=== PATIENT | female | born 1990 | race Caucasian/White ===

== ENCOUNTER 2024-04-13 20:29 | Outpatient (CLI) | payer OTHER ==
[2024-04-13 21:32] VITALS: BP 131/83; PULSE 86; RESP 16; TEMP 97.3
--- NOTE | 2024-05-10 11:03 | P.MSEPDOC ---
Presenting Problems - Arrival Data Date of Arrival on Unit: 04/13/24 Time of Arrival on Unit: 20:29 Mode of Transport: Ambulatory - Complaint OB-Reason for Admission/Chief Complaint: Decreased Movement Medical History - Information : 2 Para: 1 Term: 1 : 0 Abortions: Spontaneous or Elective: 0 Number of Living Children: 1 - Gestational Age Gestational Age by BORIS (wks/days): 37 Weeks and 3 Days - History Complications: Prior , Smoker Review of Systems - Review of Systems Constitutional: No problems Breast: No problems ENT: No problems Cardiovascular: No problems Respiratory: No problems Gastrointestinal: No problems Genitourinary: No problems Musculoskeletal: No problems Neurological: No problems Skin: No problems Vital Signs - Temperature Temperature: 97.3 F Temperature Source: Temporal Artery Scan - Pulse Right Brachial Pulse Rate: 86 Pulse Assessment Method: Automatic Cuff - Respirations Respiratory Rate: 16 Oxygen Delivery Method: Room Air - Blood Pressure Right Arm Blood Pressure: 131/83 Blood Pressure Mean: 99 Blood Pressure Source: Automatic Cuff Medical Screen Scoring - Cervical Exam Membranes: Intact - Uterine Contractions Resting: Soft to palpation - Assessment - Baby A Baseline FHR: 150 Heart Rate - NICHD Category: Category I (Normal) NST: Reactive Physician Notification - Physician Notified Physician Notified Date: 04/13/24 Physician Notified Time: 21:00 Physician: David Landers New Order Received: Yes - Notification Comment Comment: 2100- Dr. Sanchez on unit. report given on patient that presents to triage for decreased movement, reactive nst obtained. Patient reports vaginal pressure, cervical exam closed thick and high. patient to be discharged home. Maternal Triage Index - Stat/Priority 1 Stat Priority 1: No - Urgent/Priority 2 Urgent Priority 2: Yes Provider Notified: David Landers Provider Notified Time: 21:00 Criteria Met for Priority 2: decreased movement, reactive nst obtained Disposition - Disposition OB Disposition: Discharge to home Discharge Date: 04/13/24 Discharge Time: 21:08 I agree with the RN Medical Screening Exam: Yes Physician's MSE Comment: I have neither seen nor examined the patient. Case reviewed; plan agreed upon as documented in EMR&OBIX.: Yes Diagnosis: RELATED CONDITIONS, UNSPECIFIED, THIRD TRIMESTER
== END 2024-04-13 21:08 ==
LOC: FBPOP 20:29
PROVIDERS: ATTEND Obstetrics & Gynecology
DX: O26.93 Pregnancy related conditions, unspecified, third trimester (principal); O36.8130 Decreased fetal movements, third trimester, not applicable or unspecified; O99.333 Smoking (tobacco) complicating pregnancy, third trimester; F17.200 Nicotine dependence, unspecified, uncomplicated; Z3A.37 37 weeks gestation of pregnancy; Z88.1 Allergy status to other antibiotic agents; Z88.7 Allergy status to serum and vaccine; Z88.5 Allergy status to narcotic agent; Z88.8 Allergy status to other drugs, medicaments and biological substances
CPT/HCPCS: 59025; 99213

== ENCOUNTER 2024-04-26 08:15 | Inpatient (IN) | payer OTHER ==
[2024-04-26] MEDS ORDERED: OXYTOCIN 10 UNIT/ML 1 ML VIAL IM PRN (08:25)
[2024-04-26] MEDS ORDERED: CARBOPROST TROMETHAMINE 250 MCG/ML 1 ML AMP IM PRN (08:25)
[2024-04-26] MEDS ORDERED: METHYLERGONOVINE 0.2 MG/ML 1 ML AMP IM PRN (08:25)
[2024-04-26] MEDS ORDERED: miSOPROStoL 200 MCG TAB PO PRN (08:25)
[2024-04-26] MEDS ORDERED: TRANEXAMIC 1,000 MG/100ML-NACL 1,000 MG in EMPTY BAG 1 BAG IV PRN (08:25)
[2024-04-26] MEDS: LACTATED RINGERS 1,000 ML IV ONE (09:15)
[2024-04-26 09:43] LABS: Basophils % (A) 0 %; Eosinophils # (A) 0.1 k/uL (0-0.7); Eosinophils % (A) 1 %; HCT 37.6 % (34.0-46.0); HGB 11.8 gm/dL (11.4-16.0); Lymphocytes # (A) 1.5 k/uL (1.0-4.8); Lymphocytes % (A) 12 %; MCH 27.6 pg (25.0-35.0); MCHC 31.5 g/dL (31.0-37.0); MCV 87.7 fL (80.0-100.0); Mean Platelet Volume 10.9; Monocytes # (A) 0.6 k/uL (0-1.0); Monocytes % (A) 5 %; Neutrophils # (A) 9.9 k/uL (1.3-7.7); Neutrophils % (A) 81 %; Platelet Count 162 k/uL (150-450); RBC 4.29 m/uL (3.80-5.40); RDW 14.1 % (11.5-15.5); WBC 12.3 k/uL (3.8-10.6)
[2024-04-26] MEDS: LACTATED RINGERS 1,000 ML IV SCH ×2 (09:43→21:21)
[2024-04-26] MEDS: CITRIC ACID-SODIUM CITRATE 15 ML CUP PO ONE (09:43)
[2024-04-26] MEDS ORDERED: PHENYLEPHRINE-0.9% NACL SYG 1,000 MCG/10 ML SYRINGE ONE (09:52)
[2024-04-26] MEDS ORDERED: DEXAMETHASONE SOD PHOSPHATE 10 MG/ML 1 ML VIAL ONE (09:52)
[2024-04-26] MEDS ORDERED: NALBUPHINE (ANES) 10 MG/ML - 1 ML AMP ONE (09:52)
[2024-04-26] MEDS ORDERED: MORPHINE SULFATE (PF) 0.3 MG/0.3 ML SYR ONE (09:52)
[2024-04-26] MEDS ORDERED: ONDANSETRON 4 MG/2 ML VIAL ONE (09:52)
[2024-04-26] MEDS ORDERED: diphenhydrAMINE 50 MG CAP PO PRN (10:53)
[2024-04-26] MEDS ORDERED: ZOLPIDEM 5 MG TAB PO PRN (10:53)
[2024-04-26] MEDS ORDERED: diphenhydrAMINE 50 MG/ML 1 ML VIAL IVP PRN ×2 (10:53)
[2024-04-26] MEDS ORDERED: SIMETHICONE 80 MG CHEWABLE PO PRN (10:53)
[2024-04-26] MEDS ORDERED: ONDANSETRON 4 MG/2 ML VIAL IVP PRN (10:53)
[2024-04-26] MEDS ORDERED: diphenhydrAMINE 25 MG CAP PO PRN (10:53)
[2024-04-26] MEDS ORDERED: NALOXONE 0.4 MG/ML 1 ML VIAL IV PRN (10:53)
--- NOTE | 2024-04-26 11:09 | P.HPOB ---
History of Present Illness H&P Date: 04/26/24 Chief Complaint: IUP at 39-2/7 weeks, history of section x 1 desires repeat This is a 33-year-old 2 para 1-0-0-1 that presented to labor and delivery this morning for scheduled repeat section. EDC of 05/01 based on first trimester ultrasound. Patient has been receiving routine care which has been essentially uncomplicated. Ultrasound done on March 11 (32 weeks) for size greater than dates, estimated weight of 5 pounds 8 ounces at that time or 92nd percentile. This morning patient notes good movement she denies contractions vaginal bleeding or loss of fluid. On blood work this patient is a blood type of O-, rubella status immune, hepatitis B surface engine negative, HIV negative, RPR is nonreactive, grew beta strep culture is negative. Review of Systems Constitutional: Denies chills, Denies fatigue, Denies fever Ears, nose, mouth and throat: Denies headache Cardiovascular: Reports leg edema Respiratory: Denies dyspnea Gastrointestinal: Denies nausea, Denies vomiting Genitourinary: Reports Past Medical History Additional Past Medical History / Comment(s): Murmur as child. Hx dog bite 01/17/19, was on po AB Rx. c/o N/V on/off since 01/31/19, diarrhea x1, to EC x2. History of Any Multi-Drug Resistant Organisms: None Reported Past Surgical History: Section, Tonsillectomy Additional Past Surgical History / Comment(s): Oral surg. Past Anesthesia/Blood Transfusion Reactions: No Reported Reaction Past Psychological History: No Psychological Hx Reported Smoking Status: Current some day smoker, Light tobacco smoker Past Alcohol Use History: Occasional Additional Past Alcohol Use History / Comment(s): Smoking since age 18, except preganancy, 1/2-1 ppd est Past Drug Use History: None Reported - Past Family History Sister(s) Family Medical History: Deep Vein Thrombosis (DVT) Medications and Allergies Home Medications Medication Instructions Recorded Confirmed Type Aspirin [Children's Aspirin] 1 tab PO ONCE 03/04/24 04/26/24 History Vit No.179/Iron/Folic 1 tab PO ONCE 03/04/24 04/26/24 History [ Tablet] Allergies Allergy/AdvReac Type Severity Reaction Status Date / Time azithromycin [From Zithromax] Allergy Severe Anaphylaxis Verified 04/26/24 08:24 clarithromycin [From Biaxin] Allergy Severe Anaphylaxis Verified 04/26/24 08:24 erythromycin base Allergy Severe Anaphylaxis Verified 04/26/24 08:24 Tetanus Vaccines and Toxoid Allergy Intermediate Swelling Verified 04/26/24 08:24 [Tetanus Vaccines & Toxoid] acetaminophen [From [place]] AdvReac Confusion Verified 04/26/24 09:14 hydrocodone [From [place]] AdvReac Confusion Verified 04/26/24 09:14 prochlorperazine AdvReac dizzyness, Verified 04/26/24 08:24 [From Compazine] blurred vision Exam Osteopathic Statement: *. No significant issues noted on an osteopathic structural exam other than those noted in the History and Physical/Consult. Vital Signs Temp Pulse Resp BP Pulse Ox 04/26/24 08:22 97.8 F 83 17 139/63 97 Intake and Output 04/25/24 04/26/24 04/26/24 22:59 06:59 14:59 Other: Weight 117.934 kg Targeted physical exam is performed on this date In general this is a well- nourished well-developed female in no acute distress, breathing is nonlabored, heart has a regular rate and rhythm, abdomen is gravid, cervical exam is deferred, heart tones noted to be category 1 and she is not anna. Results Result Diagrams: 04/26/24 09:03 Abnormal Lab Results - Last 24 Hours (Table) 04/26/24 Range/Units 09:03 WBC 12.3 H (3.8-10.6) k/uL Neutrophils # 9.9 H (1.3-7.7) k/uL Assessment and Plan (1) Term Current Visit: Yes Status: Acute Code(s): Z34.90 - ENCNTR FOR SUPRVSN OF NORMAL , UNSP, UNSP TRIMESTER SNOMED Code(s): 00034206 (2) History of section Current Visit: Yes Status: Acute Code(s): Z98.891 - HISTORY OF UTERINE SCAR FROM PREVIOUS SURGERY SNOMED Code(s): 373767443 Plan: 33-year-old G2, P1 at 39-2/7 weeks that presents for repeat section. Informed consent is obtained the procedure was reviewed and questions were answered. Risks are discussed including but not limited to infection, bleeding, damage to bladder, bowel, injury. Patient states understanding. Will proceed to the OR for scheduled repeat section
--- NOTE | 2024-04-26 11:11 | P.OP ---
Date of Procedure: 04/26/24 Preoperative Diagnosis: IUP at 39-2/7 weeks, history of section x 1, desires repeat Postoperative Diagnosis: Same Procedure(s) Performed: Repeat section Anesthesia: spinal Surgeon: Tereza Perera Estimated Blood Loss (ml): 442 IV fluids (ml): 800 Urine output (ml): 150 Pathology: none sent Condition: stable Disposition: observation Indications for Procedure: History of section x 1, desires repeat Operative Findings: Viable female delivered at 1017, weight of 8 pounds 3 ounces, Apgars of 9 and 9 at 1 and 5 minutes respectively. Normal uterus tubes and ovaries are appreciated. Description of Procedure: The patient was prepped and draped in the usual fashion after spinal anesthesia was administered by department. A Pfannenstiel incision was made and extended of the abdominal cavity without difficulty. The bladder peritoneum was elevated and incised and reflected distally. A 2 cm incision was made in the transverse plane of the lower uterine segment to enter the uterus at which time clear fluid was noted. The incision was extended in both directions using the bandage scissors. The head was encountered within the field and delivered up and through the incision where the nose and mouth were thoroughly suctioned. Remainder of the infant was delivered onto the surgical field where the cord was doubly clamped, cut, and the was passed for resuscitative measures with weight and Apgars as noted above. The placenta was delivered manually, intact, and was grossly normal with a grossly normal three-vessel cord. The uterus was exteriorized and the interior cavity of the uterus swept of any remaining placental and membranous fragments with a laparotomy sponge. The margins of the incision were grasped with Allis clamps and the incision closed in 2 layers. First layer was a running locking layer of 0 Vicryl from margin to margin followed by a second layer of imbricating 0 Vicryl from margin to margin. Any small points of bleeding were then made hemostatic with the Bovie. Once hemostasis was achieved, the posterior cul-de-sac was suctioned with a guard and the uterine and ovarian findings are as noted above. The uterus was replaced within the abdominal cavity and the gutters swept of any remaining blood fluid or clot. The incision was again reexamined and hemostasis was noted to be excellent. Any small point of bleeding were made hemostatic with the Bovie. Once hemostasis was achieved the parietal peritoneum was loosely reapproximated. The layer of muscles were examined and made hemostatic with the Bovie. Attention was then turned to the fascia which was closed with 2 running stitches of 0 Vicryl proceeding from the lateral margins to the midpoint. The subcutaneous tissues were irrigated, made hemostatic with the Bovie, and reapproximated with a running stitch of 30 Vicryl. The skin was reapproximated with 4-0 Vicryl. Estimated blood loss for the case was approximately 442 mL. All sponge instrument and needle counts are correct. There were no complications. The patient tolerated the procedure well and proceeded to the recovery room in stable condition. Both mother and are resting comfortably in recovery.
[2024-04-26] MEDS: METOCLOPRAMIDE 5 MG/ML 2 ML VIAL IVP PRN (13:19)
[2024-04-26] MEDS: ACETAMINOPHEN TAB 500 MG TAB PO SCH (14:56)
[2024-04-26] MEDS: IBUPROFEN 800 MG TAB PO SCH (19:41)
[2024-04-26] MEDS: SENNOSIDES-DOCUSATE SODIUM 1 EACH TAB PO SCH (19:41)
[2024-04-26] MEDS: PRENATAL VIT-IRON-FOLIC ACID 1 EACH TABLET PO ONE (21:21)
[2024-04-27 07:11] LABS: Basophils % (A) 0 %; Eosinophils # (A) 0.1 k/uL (0-0.7); Eosinophils % (A) 1 %; HGB 10.3 gm/dL (11.4-16.0); Lymphocytes # (A) 1.8 k/uL (1.0-4.8); Lymphocytes % (A) 13 %; MCV 87.6 fL (80.0-100.0); Mean Platelet Volume 11.3; Monocytes # (A) 0.7 k/uL (0-1.0); Monocytes % (A) 5 %; Neutrophils # (A) 11.6 k/uL (1.3-7.7); Neutrophils % (A) 80 %; Platelet Count 146 k/uL (150-450); RBC 3.66 m/uL (3.80-5.40); RDW 14.4 % (11.5-15.5); WBC 14.5 k/uL (3.8-10.6)
--- NOTE | 2024-04-27 09:54 | P.PNOBGPC ---
Subjective - Subjective Principal diagnosis: Postop day 1, repeat section Interval history: Patient is doing well postoperatively. She is ambulating and voiding without difficulty. She is tolerating a regular diet without nausea or vomiting. Her pain is well-controlled. She is breast-feeding with some difficulty. He is noted to be minimal. Patient reports: Reports appetite normal, Reports voiding normally, Reports pain well controlled, Reports ambulating normally : doing well Objective - Vital Signs Latest vital signs: Vital Signs Temp Pulse Resp BP Pulse Ox 04/27/24 08:00 98.2 F 78 16 105/71 04/27/24 00:00 98 F 75 18 120/72 98 04/26/24 20:00 98 F 63 18 107/70 98 04/26/24 16:00 97.2 F L 75 22 105/62 98 04/26/24 12:50 74 17 98/52 100 04/26/24 12:35 71 18 96/51 100 04/26/24 12:20 68 17 95/54 100 04/26/24 12:05 67 17 97/54 97 04/26/24 11:50 67 18 102/55 99 04/26/24 11:35 70 17 105/51 98 04/26/24 11:20 69 17 106/53 97 04/26/24 11:05 75 17 108/55 97 04/26/24 10:50 97.2 F L 77 17 105/56 98 Intake and Output 04/26/24 04/27/24 04/27/24 22:59 06:59 14:59 Intake Total 60 Output Total 300 Balance -240 Intake: Oral 60 Output: Urine 300 Uretheral ([place]) 300 Other: # Voids 2 1 - Exam Extremities: Present: normal, edema Abdomen: Present: normal appearance, soft Incision: Present: normal, dry, intact Uterus: Present: normal, firm - Labs Labs: Abnormal Lab Results - Last 24 Hours (Table) 04/27/24 Range/Units 06:38 WBC 14.5 H (3.8-10.6) k/uL RBC 3.66 L (3.80-5.40) m/uL Hgb 10.3 L (11.4-16.0) gm/dL Hct 32.0 L (34.0-46.0) % Plt Count 146 L (150-450) k/uL Neutrophils # 11.6 H (1.3-7.7) k/uL Assessment and Plan (1) Term Current Visit: Yes Status: Acute Code(s): Z34.90 - ENCNTR FOR SUPRVSN OF NORMAL , UNSP, UNSP TRIMESTER SNOMED Code(s): 58808909 (2) History of section Current Visit: Yes Status: Acute Code(s): Z98.891 - HISTORY OF UTERINE SCAR FROM PREVIOUS SURGERY SNOMED Code(s): 305070365 (3) Status post section Current Visit: Yes Status: Acute Code(s): Z98.891 - HISTORY OF UTERINE SCAR FROM PREVIOUS SURGERY SNOMED Code(s): 101043974 Plan: Patient is doing well postoperatively. Plan to continue routine postoperative care and anticipate discharge home tomorrow.
--- NOTE | 2024-04-27 10:17 | P.PN ---
Progress Note - Text Progress Note Date: 04/27/24 Postoperative day 1 status post section under spinal anesthesia, and intrathecal morphine given for postoperative analgesia, patient doing well, there is no anesthesia related complications, Patient had no headache, vital signs stable , Assessment and plan= postop day 1 status post , doing well there is no anesthesia related complication.
[2024-04-28 08:32] VITALS: BP 123/75; PULSE 86; RESP 16; TEMP 97.8
--- NOTE | 2024-04-28 10:29 | P.DS ---
Providers Date of admission: 04/26/24 08:15 Expected date of discharge: 04/28/24 Attending physician: Tereza Perera Primary care physician: Stated None - Discharge Diagnosis(es) (1) Term Current Visit: Yes Status: Acute (2) History of section Current Visit: Yes Status: Acute (3) Status post section Current Visit: Yes Status: Acute Hospital Course: 33-year-old G2 now P2 that presented to labor and delivery on 04/26 for scheduled repeat section. Patient was noted to be 39-2/7 weeks at the time of admission. Patient has been receiving routine care which has been essentially uncomplicated. For full details on the patient please see the dictated history and physical. Patient was taken back to the operating suite where repeat section was performed without difficulty. For full details on the please see the dictated operative report. Patient delivered a viable female infant at 1017, weight of 8 pounds 3 ounces, Apgars of 9 and 9 at 1 and 5 minutes respectively. Patient's postoperative course has been uneventful. In this postoperative day #2 she is ambulating and voiding without difficulty. She is tolerating a regular diet without nausea or vomiting. She states her pain is well- controlled. She denies concerns and would like discharge home later today. Patient Condition at Discharge: Good Plan - Discharge Summary New Discharge Prescriptions: No Action Vit No.179/Iron/Folic [ Tablet] 1 tab PO ONCE Aspirin [Children's Aspirin] 1 tab PO ONCE Discharge Medication List Aspirin [Children's Aspirin] 1 tab PO ONCE 03/04/24 [History] Vit No.179/Iron/Folic [ Tablet] 1 tab PO ONCE 03/04/24 [History] Follow up Appointment(s)/Referral(s): Tereza Perera DO [Doctor of Osteopathic Medicine] - 05/09/24 2:45 pm (Post Appointment 06-04-2024 at 1:15pm) Patient Instructions/Handouts: (DC), (GEN) Activity/Diet/Wound Care/Special Instructions: No tub baths or intercourse until 6 weeks post . [id number] ibuprofen 600 mg or 3 tablets every 6 hours as needed for pain. Stool softeners as needed. Patient is to be seen in the office in 2 weeks for routine postoperative check Discharge Disposition: HOME SELF-CARE
== END 2024-04-28 11:00 | disposition home or self-care (01) | DRG 788 ==
LOC: 4FBP 08:15
PROVIDERS: ADMIT Obstetrics & Gynecology Obstetrics; ATTEND Obstetrics & Gynecology Obstetrics
PROC: 10D00Z1 Extraction of Products of Conception, Low, Open Approach (ICD-10-PCS; principal; 2024-04-26 10:00)
DX: O34.211 Maternal care for low transverse scar from previous cesarean delivery (principal); F17.210 Nicotine dependence, cigarettes, uncomplicated; O99.334 Smoking (tobacco) complicating childbirth; Z37.0 Single live birth; Z3A.39 39 weeks gestation of pregnancy
CPT/HCPCS: 85025; 86850; 86900; 86901

== ENCOUNTER 2024-05-10 11:39 | Emergency (ER) | payer OTHER ==
--- NOTE | 2024-05-10 12:09 | ED ---
General Adult HPI - General Chief complaint: Vaginal Bleeding Stated complaint: vaginal bleeding Time Seen by Provider: 05/10/24 11:52 Source: patient, RN notes reviewed Mode of arrival: ambulatory Limitations: no limitations - History of Present Illness Initial comments: This is a 33-year-old female with no significant medical history, [id number], presenting to emergency department for chief complaint of vaginal bleeding that started this morning. Estimates passage of approximately fourth cup of bright red blood within the toilet this morning. Patient states that she attempted to contact her OB office where nursing staff instructed report to the emergency department for further evaluation. She denies abnormal vaginal discharge, vaginal odor, dysuria, fevers, nausea or vomiting or abdominal pain. she had a uncomplicated section completed 2 weeks ago. Follow-up appointment yesterday with OB with no acute complaints. - Related Data Home Medications Medication Instructions Recorded Confirmed Aspirin [Children's Aspirin] 1 tab PO ONCE 03/04/24 04/26/24 Vit No.179/Iron/Folic 1 tab PO ONCE 03/04/24 04/26/24 [ Tablet] Allergies Allergy/AdvReac Type Severity Reaction Status Date / Time azithromycin [From Zithromax] Allergy Severe Anaphylaxis Verified 05/10/24 11:58 clarithromycin [From Biaxin] Allergy Severe Anaphylaxis Verified 05/10/24 11:58 erythromycin base Allergy Severe Anaphylaxis Verified 05/10/24 11:58 Tetanus Vaccines and Toxoid Allergy Intermediate Swelling Verified 05/10/24 11:58 [Tetanus Vaccines & Toxoid] acetaminophen [From [place]] AdvReac Confusion Verified 05/10/24 11:58 hydrocodone [From [place]] AdvReac Confusion Verified 05/10/24 11:58 prochlorperazine AdvReac dizzyness, Verified 05/10/24 11:58 [From Compazine] blurred vision Review of Systems ROS Statement: Those systems with pertinent positive or pertinent negative responses have been documented in the HPI. ROS Other: All systems not noted in ROS Statement are negative. Past Medical History Additional Past Medical History / Comment(s): Murmur as child. Hx dog bite 01/17/19, was on po AB Rx. c/o N/V on/off since 01/31/19, diarrhea x1, to EC x2. History of Any Multi-Drug Resistant Organisms: None Reported Past Surgical History: Section, Tonsillectomy Additional Past Surgical History / Comment(s): Oral surg. Past Anesthesia/Blood Transfusion Reactions: No Reported Reaction Past Psychological History: No Psychological Hx Reported Smoking Status: Current some day smoker, Light tobacco smoker Past Alcohol Use History: Occasional Past Drug Use History: None Reported - Past Family History Sister(s) Family Medical History: Deep Vein Thrombosis (DVT) General Exam - General Exam Comments Initial Comments: Visual Physical Exam Vital signs reviewed General: Well-appearing, nontoxic, no acute distress. Head: Normocephalic, atraumatic Eyes: PERRLA, EOMI ENT: Airway patent Chest: Nonlabored breathing Skin: No visual rash, normal skin tone Neuro: Alert and oriented 3 Musculoskeletal: No gross abnormalities Limitations: no limitations General appearance: alert, in no apparent distress Neck exam: Present: normal inspection. Absent: tenderness, meningismus, lymphadenopathy Respiratory exam: Present: normal lung sounds bilaterally. Absent: respiratory distress, wheezes, rales, rhonchi, stridor Cardiovascular Exam: Present: regular rate, normal rhythm, normal heart sounds. Absent: systolic murmur, diastolic murmur, rubs, gallop, clicks GI/Abdominal exam: Present: soft, normal bowel sounds. Absent: distended, ten derness, guarding, rebound, rigid Extremities exam: Present: normal inspection, full ROM, normal capillary refill. Absent: tenderness, pedal edema, joint swelling, calf tenderness Back exam: Present: normal inspection. Absent: CVA tenderness (R), CVA tenderness (L) Course Vital Signs 05/10/24 05/10/24 11:51 14:25 Temperature 99.2 F 98.4 F Pulse Rate 70 67 Respiratory 20 18 Rate Blood Pressure 119/80 112/65 O2 Sat by Pulse 98 97 Oximetry Medical Decision Making - Medical Decision Making Was pt. sent in by a medical professional or institution (, PA, PERMIT AGENT, urgent care, hospital, or penitentiary...) When possible be specific @ -No Did you speak to anyone other than the patient for history (EMS, parent, family, police, friend...)? What history was obtained from this source @ -No Did you review nursing and triage notes (agree or disagree)? Why? @ -I reviewed and agree with nursing and triage notes Were old charts reviewed (outside hosp., previous admission, EMS record, old EKG, old radiological studies, urgent care reports/EKG's, penitentiary records)? Report findings @ -Reviewed patient's discharge summary from 04/26/2024 who discharged home with stable condition from section that was scheduled on 04/26/2024 with no complications. Differential Diagnosis (chest pain, altered mental status, abdominal pain women, abdominal pain men, vaginal bleeding, weakness, fever, dyspnea, syncope, headache, dizziness, GI bleed, back pain, seizure, CVA, palpatations, mental health, musculoskeletal)? @ -Differential Vaginal Bleeding: Spontaneous , threatened , molar , ectopic , bloody show, incompetent cervix, abruptioplacenta, placenta previa, uterine rupture, dysfunctional uterine bleeding, hemorrhage, uterine fibroids, this is not meant to be an all-inclusive list. EKG interpreted by me (3pts min.). @ -None X-rays interpreted by me (1pt min.). @ -None done CT interpreted by me (1pt min.). @ -None done U/S interpreted by me (1pt. min.). @ -Transvaginal ultrasound completed with debris's and fluid identified within the endometrium without color-flow possibly representing retained products of conception Hyperechoic lesion within the left adnexa possibly representing ovarian lesion versus left adnexal lesion may represent dermoid versus other etiologies What testing was considered but not performed or refused? (CT, X-rays, U/S, labs)? Why? @ -None What meds were considered but not given or refused? Why? @ -None Did you discuss the management of the patient with other professionals (professionals i.e. , PA, PERMIT AGENT, lab, RT, psych nurse, psychologist social, senior staff accountant, teacher, police commanding officer, telehealth case manager)? Give summary @ -Spoke with on-call OB physician, Dr. Landers, who has recommended patient stable for discharge with appropriate follow-up outpatient. Was smoking cessation discussed for >3mins.? @ -No Was critical care preformed (if so, how long)? @ -No Were there social determinants of health that impacted care today? How? (Homelessness, low income, unemployed, alcoholism, drug addiction, transport ation, low edu. Level, literacy, decrease access to med. care, long term, rehab)? @ -No Was there de-escalation of care discussed even if they declined (Discuss DNR or withdrawal of care, Hospice)? DNR status @ -No What co-morbidities impacted this encounter? (DM, HTN, Smoking, COPD, CAD, Cancer, CVA, ARF, Chemo, Hep., AIDS, mental health diagnosis, sleep apnea, morbid obesity)? @ -None Was patient admitted / discharged? Hospital course, mention meds given and route, prescriptions, significant lab abnormalities, going to OR and other pertinent info. @ -Discharge. 33-year-old female presenting with vaginal bleeding after section. Overall patient is well-appearing in no signs of acute distress. Her initial vitals are stable. Abdominal examination is unremarkable. Laboratory testing unremarkable. Hemoglobin of 12.9. Urinalysis no signs infection, consistent with blood. Ultrasound reveals debris and fluid within the endometrium. I spoke with on-call OB physician and relayed information. He recommends the patient stable for discharge. Discussed with Dr. Levin Undiagnosed new problem with uncertain prognosis? @ -No Drug Therapy requiring intensive monitoring for toxicity (Heparin, Nitro, Insulin, Cardizem)? @ -No Were any procedures done? @ -No Diagnosis/symptom? @ -vaginal bleeding after Acute, or Chronic, or Acute on Chronic? @ -acute Uncomplicated (without systemic symptoms) or Complicated (systemic symptoms)? @ -uncomplicated Side effects of treatment? @ -No Exacerbation, Progression, or Severe Exacerbation? @ -No Poses a threat to life or bodily function? How? (Chest pain, [place], [place], pneumonia, PE, COPD, DKA, ARF, appy, cholecystitis, CVA, Diverticulitis, Homicidal, Suicidal, threat to staff... and all critical care pts) @ -No - Lab Data Result diagrams: 05/10/24 13:09 05/10/24 13:09 Lab Results 05/10/24 05/10/24 05/10/24 Range/Units 13:02 13:09 13:09 WBC 11.2 H (3.8-10.6) k/uL RBC 4.56 (3.80-5.40) m/uL Hgb 12.9 (11.4-16.0) gm/dL Hct 39.1 (34.0-46.0) % MCV 85.8 (80.0-100.0) fL MCH 28.4 (25.0-35.0) pg MCHC 33.1 (31.0-37.0) g/dL RDW 13.1 (11.5-15.5) % Plt Count 232 (150-450) k/uL MPV 9.0 Neutrophils % 78 % Lymphocytes % 14 % Monocytes % 3 % Eosinophils % 3 % Basophils % 0 % Neutrophils # 8.8 H (1.3-7.7) k/uL Lymphocytes # 1.5 (1.0-4.8) k/uL Monocytes # 0.4 (0-1.0) k/uL Eosinophils # 0.3 (0-0.7) k/uL Basophils # 0.0 (0-0.2) k/uL Sodium 138 (137-145) mmol/L Potassium 4.0 (3.5-5.1) mmol/L Chloride 105 (98-107) mmol/L Carbon Dioxide 25 (22-30) mmol/L Anion Gap 8 mmol/L BUN 16 (7-17) mg/dL Creatinine 0.61 (0.52-1.04) mg/dL Est GFR (CKD-EPI)AfAm >90 (>60 ml/min/1.73 sqM) Est GFR (CKD-EPI)NonAf >90 (>60 ml/min/1.73 sqM) Glucose 102 H (74-99) mg/dL Calcium 9.6 (8.4-10.2) mg/dL Total Bilirubin 0.3 (0.2-1.3) mg/dL AST 24 (14-36) U/L ALT 25 (4-34) U/L Alkaline Phosphatase 121 (38-126) U/L Total Protein 6.6 (6.3-8.2) g/dL Albumin 4.1 (3.5-5.0) g/dL Urine Color Urine Appearance (Clear) Urine pH (5.0-8.0) Ur Specific [place] (1.001-1.035) Urine Protein (Negative) Urine Glucose (UA) (Negative) Urine Ketones (Negative) Urine Blood (Negative) Urine Nitrite (Negative) Urine Bilirubin (Negative) Urine Urobilinogen (<2.0) mg/dL Ur Leukocyte Esterase (Negative) Urine RBC (0-5) /hpf Urine WBC (0-5) /hpf Urine Mucus (None) /hpf Blood Type O Negative Blood Type Recheck O Neg Bld Type Recheck Status No Antibody Screen NEGATIVE Spec Expiration Date 05/13/2024 - 230105/10/24 Range/Units 13:39 WBC (3.8-10.6) k/uL RBC (3.80-5.40) m/uL Hgb (11.4-16.0) gm/dL Hct (34.0-46.0) % MCV (80.0-100.0) fL MCH (25.0-35.0) pg MCHC (31.0-37.0) g/dL RDW (11.5-15.5) % Plt Count (150-450) k/uL MPV Neutrophils % % Lymphocytes % % Monocytes % % Eosinophils % % Basophils % % Neutrophils # (1.3-7.7) k/uL Lymphocytes # (1.0-4.8) k/uL Monocytes # (0-1.0) k/uL Eosinophils # (0-0.7) k/uL Basophils # (0-0.2) k/uL Sodium (137-145) mmol/L Potassium (3.5-5.1) mmol/L Chloride (98-107) mmol/L Carbon Dioxide (22-30) mmol/L Anion Gap mmol/L BUN (7-17) mg/dL Creatinine (0.52-1.04) mg/dL Est GFR (CKD-EPI)AfAm (>60 ml/min/1.73 sqM) Est GFR (CKD-EPI)NonAf (>60 ml/min/1.73 sqM) Glucose (74-99) mg/dL Calcium (8.4-10.2) mg/dL Total Bilirubin (0.2-1.3) mg/dL AST (14-36) U/L ALT (4-34) U/L Alkaline Phosphatase (38-126) U/L Total Protein (6.3-8.2) g/dL Albumin (3.5-5.0) g/dL Urine Color Light Yellow Urine Appearance Clear (Clear) Urine pH 5.5 (5.0-8.0) Ur Specific [place] 1.020 (1.001-1.035) Urine Protein Negative (Negative) Urine Glucose (UA) Negative (Negative) Urine Ketones Negative (Negative) Urine Blood Large H (Negative) Urine Nitrite Negative (Negative) Urine Bilirubin Negative (Negative) Urine Urobilinogen <2.0 (<2.0) mg/dL Ur Leukocyte Esterase Small H (Negative) Urine RBC 77 H (0-5) /hpf Urine WBC 7 H (0-5) /hpf Urine Mucus Rare H (None) /hpf Blood Type Blood Type Recheck Bld Type Recheck Status Antibody Screen Spec Expiration Date Disposition Clinical Impression: Vaginal bleeding Disposition: HOME SELF-CARE Condition: Good Additional Instructions: Please return to the Emergency Department if symptoms worsen or any other concerns. Is patient prescribed a controlled substance at d/c from ED?: No Referrals: Yann Zapata MD [Primary Care Provider] - 1-2 days Time of Disposition: 14:06
--- NOTE | 2024-05-10 13:04 | US ---
EXAMINATION TYPE: US transvaginal DATE OF EXAM: 05/10/2024 COMPARISON: NONE CLINICAL INDICATION: Female, 33 years old with history of bleeding, 2 weeks ago; Heavy blee ding with clots started today, patient denies cramping TECHNIQUE: Transvaginal (TV) and Transabdominal (TA) . Transabdominal grayscale sonographic images of the pelvis were acquired. Transvaginal sonographic im ages were medically necessary to better assess the following anatomy: Ovaries Doppler imaging: Not performed. FINDINGS: Date of LMP: Unknown EXAM MEASUREMENTS: Uterus: 14.3 x 6.2 x 8.1 cm Endometrial Stripe: 1.2 cm Right Ovary: 3.0 x 2.2 x 2.3 cm Left Ovary: 5.1 x 3.2 x 4.5 cm ? Dermoid vs foreign body - unable to find other tissue resembling ov abhinav. 1. Uterus: Anteverted wnl 2. Endometrium: Retained products of conception 3. Right Ovary: wnl 4. Left Ovary: ? Dermoid vs other etiology 5. Bilateral Adnexa: ? Left ovary vs other etiology seen within left adnexa 6. Posterior cul-de-sac: WNL Anteverted uterus without focal lesion. Debris and fluid identified within the endometrium without in ternal color flow. The right ovary is unremarkable. Hyperechoic lesion within the left adnexa measuri ng 5.1 x 3.2 x 4.5 cm. No free fluid. IMPRESSION: 1. Debris and fluid identified within the endometrium without color flow. Could represent retained p roducts of conception. Correlate clinically. 2. Hyperechoic lesion within the left adnexa which may represent an ovarian lesion versus separate le ft adnexal lesion. Overall this may represent a dermoid versus other etiologies. No prior imaging is available for comparison. Recommend further evaluation with MR pelvis. [facility], , 05/10/2024 1:01 PM
[2024-05-10 13:24] LABS: Basophils % (A) 0 %; Eosinophils # (A) 0.3 k/uL (0-0.7); Eosinophils % (A) 3 %; HCT 39.1 % (34.0-46.0); HGB 12.9 gm/dL (11.4-16.0); Lymphocytes # (A) 1.5 k/uL (1.0-4.8); Lymphocytes % (A) 14 %; MCH 28.4 pg (25.0-35.0); MCHC 33.1 g/dL (31.0-37.0); MCV 85.8 fL (80.0-100.0); Monocytes # (A) 0.4 k/uL (0-1.0); Monocytes % (A) 3 %; Neutrophils # (A) 8.8 k/uL (1.3-7.7); Neutrophils % (A) 78 %; Platelet Count 232 k/uL (150-450); RBC 4.56 m/uL (3.80-5.40); RDW 13.1 % (11.5-15.5); WBC 11.2 k/uL (3.8-10.6)
[2024-05-10 13:40] LABS: ALT 25 U/L (4-34); AST 24 U/L (14-36); African American GFR (CKD) >90 (>60 ml/min/1.73 sqM); Albumin 4.1 g/dL (3.5-5.0); Alkaline Phosphatase 121 U/L (38-126); Anion Gap 8 mmol/L; Blood Urea Nitrogen 16 mg/dL (7-17); Calcium 9.6 mg/dL (8.4-10.2); Carbon Dioxide 25 mmol/L (22-30); Chloride 105 mmol/L (98-107); Glucose 102 mg/dL (74-99); Non-African American GFR(CKD) >90 (>60 ml/min/1.73 sqM); Sodium 138 mmol/L (137-145); Total Bilirubin 0.3 mg/dL (0.2-1.3); Total Protein 6.6 g/dL (6.3-8.2)
[2024-05-10 13:52] LABS: Appearance,Urine Clear (Clear); Bilirubin,Urine Negative (Negative); Blood,Urine Large (Negative); Color,Urine Light Yellow; Glucose,Urine (UA) Negative (Negative); Ketones,Urine Negative (Negative); Leukocyte Esterase,Urine Small (Negative); Mucus,Urine Rare /hpf; Nitrite,Urine Negative (Negative); PH, Urine 5.5 (5.0-8.0); Protein,Urine Negative (Negative); RBC,Urine 77 /hpf (0-5); Urobilinogen,Urine <2.0 mg/dL (<2.0); WBC,Urine 7 /hpf (0-5)
[2024-05-10 14:26] VITALS: BP 112/65; PULSE 67; RESP 18; TEMP 98.4
== END 2024-05-10 14:26 | disposition home or self-care (01) ==
LOC: EC 11:39
DX: N93.9 Abnormal uterine and vaginal bleeding, unspecified (principal); F17.200 Nicotine dependence, unspecified, uncomplicated; Z88.1 Allergy status to other antibiotic agents; Z88.5 Allergy status to narcotic agent; Z88.7 Allergy status to serum and vaccine; Z88.8 Allergy status to other drugs, medicaments and biological substances
CPT/HCPCS: 36415; 76830; 76856; 80053; 81001; 85025; 86850; 86900; 86901; 99284